=== PATIENT | male | born 1970 | race Two or more races ===

== ENCOUNTER 2022-01-15 06:57 | Inpatient (IN) | payer OTHER ==
[~2022-01-15] VITALS: Ht 188 cm; Wt 129.3 kg
[2022-01-15] MEDS ORDERED: LOSARTAN-HCTZ1 EAC2 PO (07:11)
--- NOTE | 2022-01-15 07:12 | NUR ---
SE RECIBE PTE ALERTA Y ORIENTADO X3 QUIEN ES REFERIDO POR DR PRINGLE A ER POR ULCERA ANAL. SE MONITOREAN S/V Y SE UBICA EN OBSERVACION.
--- NOTE | 2022-01-15 08:08 | NUR ---
SE ORIENTA PTE SOBRE TX A SEGUIR, EL CUAL REFIERE ENTENDER, SE COLECTAN MUESTRAS Y SE CANALIZA PTE UTILIZANDO MEDIDAS ASEPTICAS. SE ADMINISTRAN IV FLUID'S Y SE REALIZA EKG.
[2022-01-16] MEDS ORDERED: FIBER625 MG (10:10)
[2022-01-17] MEDS ORDERED: OXYC1TAB9 PO (08:01)
[2022-01-17] MEDS ORDERED: LEVOFLOXACIN500 MG PO (08:02)
[2022-01-17] MEDS ORDERED: METRONIDAZOLE500 MG PO (08:03)
[2022-01-17] MEDS ORDERED: RECTICARE30 GM TOP (08:04)
== END 2022-01-17 11:32 | disposition home or self-care (01) | DRG 374 ==
LOC: ER 06:57 → SEC-K 08:15 → SURG 15:34
PROVIDERS: ADMIT Surgery; ATTEND Surgery
PROC: 4A12X4Z Monitoring of Cardiac Electrical Activity, External Approach (ICD-10-PCS; 2022-01-15)
PROC: 0DBP8ZX Excision of Rectum, Via Natural or Artificial Opening Endoscopic, Diagnostic (ICD-10-PCS; principal; 2022-01-15 10:30)
DX: C20 Malignant neoplasm of rectum (principal); K55.041 Focal (segmental) acute infarction of large intestine; K62.5 Hemorrhage of anus and rectum; K60.3 Anal fistula; E66.01 Morbid (severe) obesity due to excess calories; E11.9 Type 2 diabetes mellitus without complications; I11.9 Hypertensive heart disease without heart failure; I48.91 Unspecified atrial fibrillation; G47.33 Obstructive sleep apnea (adult) (pediatric)